=== PATIENT | male | born 1955 | race Caucasian/White ===

== ENCOUNTER 2018-11-03 14:57 | Emergency (ER) | payer MEDICAID ==
[~2018-11-03] VITALS: Ht 165.1 cm; Wt 65.8 kg
[2018-11-03 15:05] VITALS: BP 128/97
[2018-11-03] MEDS ORDERED: KETOROLAC 30 MG/ML VIAL IM ONE (15:40)
--- NOTE | 2018-11-03 15:48 | NUR ---
X-Ray at bedside.
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
--- NOTE | 2018-11-03 18:10 | NUR ---
PT TRANSFERRED VIA WHEELCHAIR TO CHAIR C
--- NOTE | 2018-11-03 19:29 | NUR ---
CALLED [facility] AND GAVE REPORT TO MEET MAYO. VS STABLE.
--- NOTE | 2018-11-03 20:02 | NUR ---
POSTERIOR LONG LEG WAS PLACED ON PTS LEFT LEG. SPLINT WAS WRAPPED IN A NELL BANDAGE. [place] [facility] [place]
--- NOTE | 2018-11-03 20:30 | NUR ---
Patient to be transferred to [facility]. Is being transferred due to HIGHER LEVEL OF CARE. Receiving facility has accepting physician and available space. ER physician has signed transfer form. Patient or responsible republican has agreed to transfer and signed form. Patient belongings inventoried and will be sent with patient. Copy of nursing notes, lab reports, EKG, Physicians Orders and X-rays to be sent with patient. Report called to RN at receiving facility. [facility] ambulance service has been called for transfer. ETA is TO [facility] IS 30 MIN. APPROX.
[2018-11-03 20:35] VITALS: BP 139/94
--- NOTE | 2018-11-03 20:39 | NUR ---
[facility] IN ROUTE TO [facility]. PT VITALS STABLE AT TRANSFER. ER MADE AWARE
== END 2018-11-03 20:30 | disposition short-term general hospital (02) ==
LOC: MED 14:57
DX: S82.142A Displaced bicondylar fracture of left tibia, initial encounter for closed fracture (principal); V19.49XA Pedal cycle driver injured in collision with other motor vehicles in traffic accident, initial encounter; Y93.55 Activity, bike riding; Y92.89 Other specified places as the place of occurrence of the external cause; Y99.8 Other external cause status
CPT/HCPCS: 29505; 73562; 96372; 99285; J1885; Q0092